=== PATIENT | female | born 1995 | race American Indian/Alaskan Native ===

== ENCOUNTER 2017-04-14 10:40 | Emergency (ER) | payer SELFPAY ==
[2017-04-14 11:25] LABS: Bilirubin,Urine NEG (Negative); Blood,Urine NEG (Negative); Ketones,Urine 20 mg/dL (Negative); Leukocyte Esterase,Urine NEG (Negative); Mucus,Urine FEW /HPF; Nitrite,Urine NEG (Negative); RBC,Urine < 1.0 /HPF (0.0-6.0); WBC,Urine < 1.0 /HPF (0.0-6.0)
[2017-04-14 11:30] LABS: Basophils % (Auto) 0.5 % (0.0-1.8); Hematocrit 32.6 % (30.3-42.9); Hemoglobin 10.3 gm/dl (10.1-14.3); Mean Corpuscular HGB Conc 32 % (30-34); Mean Corpuscular Volume 81 fl (79-97); Platelet Count 180 K/mm3 (140-440); Red Blood Count 4.03 M/mm3 (3.65-5.03); Red Cell Distribution Width 16.6 % (13.2-15.2); White Blood Count 6.5 K/mm3 (4.5-11.0)
[2017-04-14 11:31] LABS: Mean Corpuscular Hemoglobin 26 pg (28-32)
[2017-04-14 11:51] LABS: Anion Gap 17 mmol/L; Blood Urea Nitrogen 6 mg/dL (7-17); Calcium 9.1 mg/dL (8.4-10.2); Carbon Dioxide 23 mmol/L (22-30); Chloride 99.6 mmol/L (98-107); Glucose 87 mg/dL (65-100); Potassium 3.7 mmol/L (3.6-5.0); Sodium 136 mmol/L (137-145)
[2017-04-14] MEDS ORDERED: TYLENOL PO ONE (12:19)
[2017-04-14] MEDS ORDERED: ZOFRAN IV ONE ×2 (12:19→13:36)
[2017-04-14] MEDS ORDERED: NACL 0.9% 1000 ML 1,000 ML IV ONE ×2 (12:19→14:50)
--- NOTE | 2017-04-14 12:23 | Emergency Department Report ---
ED N/V/D HPI - General Chief complaint: Nausea/Vomiting/Diarrhea Stated complaint: 9WKS PREGN/ HEADACHE /VOMITTING Time Seen by Provider: 04/14/17 12:08 Source: patient Mode of arrival: Ambulatory Limitations: No Limitations - History of Present Illness Initial comments: 22-year-old female here with nausea vomiting for the last several days. Patient is approximately 8-10 weeks at this point. This is her first . Denies fevers chills. Complains of a headache. No history of hyperemesis according the patient. Denies abdominal pain fevers chills. MD complaint: nausea, vomiting -: Gradual Description of Vomiting: food contents, watery Associated Abdominal Pain: No Radiation: none Worsens with: eating Associated Symptoms: headaches, nausea/vomiting. denies: myalgias, chest pain, cough, diaphoresis - Related Data Previous Rx's Medication Instructions Recorded Last Taken Type Ondansetron [Zofran TAB] 4 mg PO Q8HR PRN #20 tablet 04/14/17 Unknown Rx Allergies Allergy/AdvReac Type Severity Reaction Status Date / Time boric acid Allergy Shortness Verified 04/14/17 10:57 of Breath ED Review of Systems ROS: Stated complaint: 9WKS PREGN/ HEADACHE /VOMITTING Other details as noted in HPI Comment: All other systems reviewed and negative Constitutional: denies: chills, fever Eyes: denies: eye pain, eye discharge, vision change ENT: denies: ear pain, throat pain Respiratory: denies: cough, shortness of breath, wheezing Cardiovascular: denies: chest pain, palpitations Endocrine: no symptoms reported Gastrointestinal: denies: abdominal pain, nausea, diarrhea Genitourinary: other (). denies: urgency, dysuria, discharge Musculoskeletal: denies: back pain, joint swelling, arthralgia Skin: denies: rash, lesions Neurological: denies: headache, weakness, paresthesias Psychiatric: denies: anxiety, depression Hematological/Lymphatic: denies: easy bleeding, easy bruising ED Past Medical Hx - Past Medical History Hx Headaches / Migraines: Yes Hx Asthma: Yes Additional medical history: BELLS PALSY - Surgical History Additional Surgical History: HERNIA REPAIR - Family History Family history: no significant - Social History Smoking Status: Never Smoker - Medications Home Medications: Home Medications Medication Instructions Recorded Confirmed Last Taken Type Ondansetron [Zofran TAB] 4 mg PO Q8HR PRN #20 tablet 04/14/17 Unknown Rx ED Physical Exam - General Limitations: No Limitations General appearance: alert, in no apparent distress - Head Head exam: Present: atraumatic, normocephalic - Eye Eye exam: Present: normal appearance - ENT ENT exam: Present: mucous membranes dry - Neck Neck exam: Present: normal inspection - Respiratory Respiratory exam: Present: normal lung sounds bilaterally. Absent: respiratory distress - Cardiovascular Cardiovascular Exam: Present: regular rate, tachycardia. Absent: systolic murmur, diastolic murmur, rubs, gallop - GI/Abdominal GI/Abdominal exam: Present: soft, normal bowel sounds. Absent: distended, tenderness, guarding, rebound - Extremities Exam Extremities exam: Present: normal inspection - Back Exam Back exam: Present: normal inspection - Neurological Exam Neurological exam: Present: alert, oriented X3 - Psychiatric Psychiatric exam: Present: normal affect, normal mood - Skin Skin exam: Present: warm, dry, intact, normal color. Absent: rash ED Course Vital Signs 04/14/17 04/14/17 04/14/17 10:50 11:42 11:57 Temperature 98.6 F 98.6 F Pulse Rate 112 H 82 Respiratory 15 16 Rate Blood Pressure 131/72 Blood Pressure 118/73 [Left] O2 Sat by Pulse 100 100 100 Oximetry 04/14/17 04/14/17 04/14/17 12:00 12:22 12:30 Temperature Pulse Rate 81 87 Respiratory 18 18 17 Rate Blood Pressure 118/69 118/69 Blood Pressure [Left] O2 Sat by Pulse 97 Oximetry 04/14/17 13:00 Temperature Pulse Rate 84 Respiratory 13 Rate Blood Pressure 118/69 Blood Pressure [Left] O2 Sat by Pulse 100 Oximetry ED Medical Decision Making - Lab Data Result diagrams: 04/14/17 11:17 04/14/17 11:17 Laboratory Results - last 24 hr 04/14/17 04/14/17 04/14/17 11:17 11:17 Unknown WBC 6.5 RBC 4.03 Hgb 10.3 Hct 32.6 MCV 81 MCH 26 L MCHC 32 RDW 16.6 H Plt Count 180 Lymph % (Auto) 19.1 [place] % (Auto) 11.6 H Eos % (Auto) 1.0 Baso % (Auto) 0.5 Lymph # 1.2 [place] # 0.8 Eos # 0.1 Baso # 0.0 Seg Neutrophils % 67.8 Seg Neutrophils # 4.4 Sodium 136 L Potassium 3.7 Chloride 99.6 Carbon Dioxide 23 Anion Gap 17 BUN 6 L Creatinine 0.4 L Estimated GFR > 60 BUN/Creatinine Ratio 15.00 Glucose 87 Calcium 9.1 Urine Color Yellow Urine Turbidity Slightly-cloudy Urine pH 6.0 Ur Specific [place] 1.021 Urine Protein 30 mg/dl Urine Glucose (UA) Neg Urine Ketones 20 Urine Blood Neg Urine Nitrite Neg Urine Bilirubin Neg Urine Urobilinogen 4.0 Ur Leukocyte Esterase Neg Urine WBC (Auto) < 1.0 Urine RBC (Auto) < 1.0 U Epithel Cells (Auto) < 1.0 Urine Mucus Few - EKG Data -: EKG Interpreted by Me - EKG Data 04/14/17 15:08 Sinus tachycardia rate of 1:30 normal axis normal intervals and no ST-T wave changes - Medical Decision Making Patient is a 22-year-old female here with what appears to be dehydration. She has a headache which is likely associated with the dehydration. Her labs are unremarkable. Plan to treat her with some IV fluids Zofran and will reassess. 3 PM patient had a reaction to Reglan and required a dose of Benadryl. She became tachycardic and very anxious. Slightly likely akathisia. She is feeling better after a dose of IV Benadryl. She will be given a second liter of IV fluids. Discussed discharge plans with the patient. Plans were for the patient to OB and will discharge her with Zofran. Discussed strategies to minimize morning sickness. Portions of this chart were dictated with dictation software. There may be dictation errors contained within this note. Critical care attestation.: If time is entered above; I have spent that time in minutes in the direct care of this critically ill patient, excluding procedure time. ED Disposition Clinical Impression: Hyperemesis arising during , Dehydration Disposition: DC-01 TO HOME OR SELFCARE Is pt being admited?: No Condition: Stable Instructions: Hyperemesis Gravidarum (ED) Additional Instructions: Please follow up in the next week with obstetrics. Prescriptions: Ondansetron [Zofran TAB] 4 mg PO Q8HR PRN #20 tablet PRN Reason: Nausea And Vomiting Referrals: PRIMARY CARE, [Primary Care Provider] - 3-5 Days RORY DICKEY MD [Staff Physician] - 3-5 Days
[2017-04-14] MEDS ORDERED: REGLAN IV ONE (13:54)
[2017-04-14] MEDS ORDERED: BENADRYL ONE (14:50)
[2017-04-14] MEDS ORDERED: BENADRYL IV ONE ×2 (14:50→15:05)
[2017-04-14 16:11] VITALS: BP 110/61
== END 2017-04-14 16:13 | disposition home or self-care (01) ==
LOC: ED 10:40
DX: O21.1 Hyperemesis gravidarum with metabolic disturbance (principal); Z3A.09 9 weeks gestation of pregnancy; J45.909 Unspecified asthma, uncomplicated; G43.909 Migraine, unspecified, not intractable, without status migrainosus; Z88.8 Allergy status to other drugs, medicaments and biological substances
CPT/HCPCS: 36415; 80048; 81001; 84702; 85025; 93005; 93010; 96361; 96374; 96375; 96376; 99284; J1200; J2405; J2765; J7030; 82962